=== PATIENT | female | born 1995 | race Caucasian/White ===

== ENCOUNTER 2019-10-10 10:14 | Emergency (ER) | payer OTHER ==
[~2019-10-10] VITALS: Ht 165.1 cm; Wt 64.4 kg
== END 2019-10-10 14:47 | disposition home or self-care (01) ==
LOC: ER 10:14
DX: O20.8 Other hemorrhage in early pregnancy (principal); R10.2 Pelvic and perineal pain

== ENCOUNTER → 2020-07-18 | Outpatient (CLI) | payer OTHER | END | disposition home or self-care (01) | LOC: PRENATAL 08:19 | PROVIDERS: ATTEND Obstetrics & Gynecology Maternal & Fetal Medicine | DX: Z36.89 Encounter for other specified antenatal screening (principal); O36.80X1 Pregnancy with inconclusive fetal viability, fetus 1; Z3A.12 12 weeks gestation of pregnancy ==

== ENCOUNTER → 2020-09-12 | Outpatient (CLI) | payer OTHER | END | disposition home or self-care (01) | LOC: PRENATAL 13:00 | PROVIDERS: ATTEND Obstetrics & Gynecology Maternal & Fetal Medicine | DX: O35.0XX1 Maternal care for (suspected) central nervous system malformation in fetus, fetus 1 (principal); O35.3XX1 Maternal care for (suspected) damage to fetus from viral disease in mother, fetus 1; O98.512 Other viral diseases complicating pregnancy, second trimester; Z36.89 Encounter for other specified antenatal screening; Z3A.20 20 weeks gestation of pregnancy ==

== ENCOUNTER 2021-01-11 14:30 | Inpatient (IN) | payer OTHER ==
[~2021-01-11] VITALS: Ht 165.1 cm; Wt 77.1 kg
[2021-01-24] MEDS ORDERED: PRENATAL + DHA1 EAC1 (01:41)
== END 2021-01-27 12:06 | disposition home or self-care (01) | DRG 807 ==
LOC: LDR 01-18 14:30 → OB/GYN 01-25 20:34 → LDR 01-27 14:30
PROVIDERS: ADMIT Specialist; ATTEND Specialist
PROC: 3E0P7VZ Introduction of Hormone into Female Reproductive, Via Natural or Artificial Opening (ICD-10-PCS; 2021-01-24)
PROC: 4A1HXFZ Monitoring of Products of Conception, Cardiac Rhythm, External Approach (ICD-10-PCS; 2021-01-24)
PROC: 10E0XZZ Delivery of Products of Conception, External Approach (ICD-10-PCS; principal; 2021-01-25)
PROC: 0KQM0ZZ Repair Perineum Muscle, Open Approach (ICD-10-PCS; 2021-01-25)
PROC: 10907ZC Drainage of Amniotic Fluid, Therapeutic from Products of Conception, Via Natural or Artificial Opening (ICD-10-PCS; 2021-01-25)
DX: O62.2 Other uterine inertia (principal); O70.1 Second degree perineal laceration during delivery; Z37.0 Single live birth; O36.8130 Decreased fetal movements, third trimester, not applicable or unspecified; Z3A.39 39 weeks gestation of pregnancy

== ENCOUNTER 2021-01-20 11:47 | Outpatient (CLI) | payer OTHER | END 2021-01-20 13:52 | disposition home or self-care (01) | LOC: PRENATAL 11:47 | PROVIDERS: ATTEND Obstetrics & Gynecology Maternal & Fetal Medicine | DX: O26.843 Uterine size-date discrepancy, third trimester (principal); O35.0XX1 Maternal care for (suspected) central nervous system malformation in fetus, fetus 1; Z36.89 Encounter for other specified antenatal screening; Z3A.38 38 weeks gestation of pregnancy ==

== ENCOUNTER 2021-01-24 00:28 | Outpatient (CLI) | payer OTHER ==
[2021-01-24] MEDS ORDERED: PRENATAL + DHA1 EAC1 (01:41)
== END 2021-01-24 09:08 | disposition still patient (30) ==
LOC: OBS/DEL 00:28
PROVIDERS: ATTEND Specialist
DX: O36.8130 Decreased fetal movements, third trimester, not applicable or unspecified (principal); Z3A.39 39 weeks gestation of pregnancy

== ENCOUNTER 2022-04-10 10:35 | Inpatient (IN) | payer OTHER ==
[~2022-04-10] VITALS: Ht 165.1 cm; Wt 65.3 kg
[~2022-04-10 10:35] MED LIST: PRENATAL + DHA1 EAC1
== END 2022-04-14 13:33 | disposition home or self-care (01) | DRG 832 ==
LOC: ER 10:35 → MEDI 20:47
PROVIDERS: ADMIT Obstetrics & Gynecology; ATTEND Obstetrics & Gynecology
PROC: 4A1HXCZ Monitoring of Products of Conception, Cardiac Rate, External Approach (ICD-10-PCS; principal; 2022-04-10)
PROC: BY49ZZZ Ultrasonography of First Trimester, Single Fetus (ICD-10-PCS; 2022-04-10)
PROC: BU4CZZZ Ultrasonography of Uterus and Ovaries (ICD-10-PCS; 2022-04-10)
PROC: 8E0ZXY6 Isolation (ICD-10-PCS; 2022-04-11)
DX: O46.8X1 Other antepartum hemorrhage, first trimester (principal); A90 Dengue fever [classical dengue]; O98.511 Other viral diseases complicating pregnancy, first trimester; O99.111 Other diseases of the blood and blood-forming organs and certain disorders involving the immune mechanism complicating pregnancy, first trimester; O26.891 Other specified pregnancy related conditions, first trimester; O36.80X0 Pregnancy with inconclusive fetal viability, not applicable or unspecified; O26.851 Spotting complicating pregnancy, first trimester; D69.6 Thrombocytopenia, unspecified; B34.9 Viral infection, unspecified; E83.42 Hypomagnesemia; E87.6 Hypokalemia; D70.8 Other neutropenia; Z3A.01 Less than 8 weeks gestation of pregnancy; Z20.822 Contact with and (suspected) exposure to COVID-19

== ENCOUNTER 2022-06-04 11:09 | Outpatient (CLI) | payer OTHER | END 2022-06-04 12:30 | disposition home or self-care (01) | LOC: PRENATAL 11:09 | PROVIDERS: ATTEND Obstetrics & Gynecology Maternal & Fetal Medicine | DX: O36.80X0 Pregnancy with inconclusive fetal viability, not applicable or unspecified (principal); Z3A.15 15 weeks gestation of pregnancy ==

== ENCOUNTER 2022-07-16 10:42 | Outpatient (CLI) | payer OTHER | END 2022-07-16 11:46 | disposition home or self-care (01) | LOC: PRENATAL 10:42 | PROVIDERS: ATTEND Obstetrics & Gynecology Maternal & Fetal Medicine | DX: O35.9XX0 Maternal care for (suspected) fetal abnormality and damage, unspecified, not applicable or unspecified (principal); O35.3XX0 Maternal care for (suspected) damage to fetus from viral disease in mother, not applicable or unspecified; Z3A.21 21 weeks gestation of pregnancy ==

== ENCOUNTER 2022-10-02 13:15 | Outpatient (CLI) | payer OTHER | END 2022-10-02 16:27 | disposition home or self-care (01) | LOC: PRENATAL 13:15 | PROVIDERS: ATTEND Obstetrics & Gynecology Maternal & Fetal Medicine | DX: O26.849 Uterine size-date discrepancy, unspecified trimester (principal); O36.8199 Decreased fetal movements, unspecified trimester, other fetus; Z3A.32 32 weeks gestation of pregnancy ==